=== PATIENT | male | born 1945 | race Caucasian/White ===

== ENCOUNTER 2021-01-06 14:57 | Emergency (ER) | payer OTHER, SELFPAY ==
[2021-01-06 15:18] VITALS: BP 134/87; PULSE 59; RESP 18; TEMP 36.7; O2SAT 98; BMI 24.4
--- NOTE | 2021-01-06 15:28 | ECG_ITS ---
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
--- NOTE | 2021-01-06 15:28 | XRR_ITS ---
PROCEDURE INFORMATION: Exam: XR Chest Exam date and time: 01/06/2021 3:28 PM Age: 75 years old Clinical indication: Pain; Chest pressure; Additional info: Chest pain TECHNIQUE: Imaging protocol: XR of the chest. Views: 1 view. COMPARISON: No relevant prior studies available. FINDINGS: Lungs: There is no consolidation. Pleural spaces: There is no pleural effusion or pneumothorax. Heart/Mediastinum: There is mild enlargement of the cardiac silhouette. There is a large hiatal hernia. Bones/joints: Bones are unremarkable. XR/XR chest 1V portable [id number] IMPRESSION: 1. No acute findings. 2. Large hiatal hernia.
--- NOTE | 2021-01-06 15:50 | CTR_ITS ---
PROCEDURE INFORMATION: Exam: CT Head Without Contrast Exam date and time: 01/06/2021 3:50 PM Age: 75 years old Clinical indication: Dizziness TECHNIQUE: Imaging protocol: Computed tomography of the head without contrast. Radiation optimization: All CT scans at this facility use at least one of these dose optimization techniques: automated exposure control; mA and/or kV adjustment per patient size (includes targeted exams where dose is matched to clinical indication); or iterative reconstruction. COMPARISON: No relevant prior studies available. RADIATION DOSE METRICS: Total DLP (mGy-cm): 943.88 FINDINGS: Brain: The brain is unremarkable. There is no mass effect or significant white matter disease. There is no acute intracranial hemorrhage. Cerebral ventricles: There is no significant ventricular dilation. The basal cisterns are unremarkable. Paranasal sinuses: The paranasal sinuses are clear. Mastoid air cells: The mastoid air cells are clear. Bones/joints: The calvarium is intact. Soft tissues: The visible extracranial soft tissues are unremarkable. CT/CT head wo con* [id number] IMPRESSION: No acute intracranial abnormality. Radiation Dose CTDIVOL = (mGy): DLP = 943.88 (mGy-cm)
--- NOTE | 2021-01-06 15:55 | ED_ITS ---
HPI - Neuro Symptoms/Deficit General: Chief Complaint: Neuro Symptoms/Deficit Stated Complaint: Dizziness Time Seen by Provider: 01/06/21 15:55 History of Present Illness: HPI Narrative: Mr. Perkins is a 75-year-old gentleman without significant past medical history presents to the emergency department due to abnormal syncopal episode. He reports negative baseline health. He walked a short distance which is not atypical for him to his friend's house and after about 15 minutes sitting on the couch had sudden onset of a warmth followed by lightheadedness and loss of consciousness. There was no fall or head strike associated with this. His friend, who is at bedside, witnessed this. He had altered level of consciousness for about 5 date minutes with left-sided head deviation but no other seizure-like activity. He subsequently returned to consciousness and felt off for about 10 minutes before symptoms completely resolved. 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 He denies similar episodes in the past. He has otherwise been at his baseline health. Intensity of symptoms was severe. Onset was sudden. No other specific provoking, exacerbating, or relieving factors identified. Review of Systems General: Reports: 10 or more systems reviewed and unremarkable except in HPI and below Physical Exam Narrative: EXAM NARRATIVE: GENERAL/CONSTITUTIONAL - well-appearing. No acute distress. Eyes - PERRL, no conjunctival injection ENMT - Atraumatic external nose and ears. Moist mucous membranes NECK - supple. trachea midline CARDIOVASCULAR - regular rate and rhythm. Peripheral pulses 2+ and equal RESPIRATORY -clear to auscultation bilaterally. No retractions or accessory muscle use. ABDOMEN/GI - Nontender/Nondistended. No tenderness to percussion or evidence of peritonitis MSK - Extremities without obvious deformity or tenderness to palpation SKIN - Warm, Dry NEURO - alert and appropriately oriented. Cranial nerves II through XII intact. Coordination intact. Gait normal. Strength and sensation intact. Moves all extremities equally. PSYCH - Appropriate mood and affect Course ED course: - Patient was seen and evaluated by me at bedside - Patient placed on cardiac monitors, IV access obtained - Initial evaluation notable for no acute distress, nontoxic appearance. No neurologic deficits appreciated - Labs notable for no acute abnormality to explain patient's symptoms - Imaging notable for no acute abnormality to explain patient's symptoms - Upon serial reexamination after treatment the patient was similar. 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 There is nothing in history or ED observation to suggest a tacky?lenin syndrome. No history of similar events. - Based on patient history, evaluation, labs, and imaging as interpreted the most likely cause of the patient's condition is unclear. I did discuss the uncertainty of the cause with the patient and offered admission for observation which she declined and felt comfortable with outpatient follow-up. - The results of ED evaluation were discussed with the patient including prescriptions and/or symptomatic cares (if applicable) including appropriate and responsible use, followup plan, and return precautions. The patient verbalized understanding and felt safe for discharge. - Patient discharged in satisfactory condition. Vital Signs: Vital signs: Vital Signs Temperature 98.3 F 01/06/21 16:02 Pulse Rate 50 L 01/06/21 20:17 Respiratory Rate 18 01/06/21 20:17 Blood Pressure 131/70 01/06/21 20:17 Pulse Oximetry 98 01/06/21 20:17 MDM - Neuro Symptoms/Deficit Medical Records: Attestation: I reviewed the patient's medical records. Lab Data: Attestation: I reviewed the patient's lab results. Labs: Lab Results 01/06/21 01/06/21 01/06/21 16:45 16:45 16:45 WBC 6.9 10^3/uL 10^3/ uL (4.0-10.0) RBC 4.78 10^6/uL 10^6 /uL (4.1-5.3) Hgb 16.9 g/dL H g/dL (11.7-16.6) Hct 48.1 % % (42.0-52.0) MCV 100.6 fl H fl (80-94) MCH 35.4 pg H pg (28.0-34.0) MCHC 35.1 g/dL g/dL (30.0-36.0) RDW 12.7 % % (12.1-15.1) Plt Count 143 10^3/cmm 10^3 /cmm (130-400) MPV 9.0 fL fL (7.4-10.4) Neut % (Auto) 73.2 % % Lymph % (Auto) 18.2 % % Giles % (Auto) 6.9 % % Eos % (Auto) 1.0 % % Baso % (Auto) 0.4 % % Neut # (Auto) 5.02 10^3/uL 10^3 /uL (1.8-7.7) Lymph # (Auto) 1.3 10^3/uL 10^3/ uL (0.8-4.8) Giles # (Auto) 0.5 10^3/uL 10^3/ uL (0.2-0.9) Eos # (Auto) 0.1 10^3/uL 10^3/ uL (0.0-0.8) Baso # (Auto) 0.0 10^3/uL 10^3/ uL (0.0-0.1) Nucleated RBC % (a uto) 0 % % Nucleated RBCs # 0.0 /100WBC /100W BC Sodium 139 mmol/L mmol/L (136-145) Potassium 4.3 mmol/L mmol/L (3.5-5.1) Chloride 103 mmol/L mmol/L (98-107) Carbon Dioxide 25 mmol/L mmol/L (22-29) Anion Gap 15.3 (5-19) BUN 18 mg/dL mg/dL (8-23) Creatinine 0.8 mg/dL mg/dL (0.7-1.2) GFR Calculation Not Reportable Glucose 101 mg/dL mg/dL (65-115) Calculated Osmolal ity 290 mOsm/kg mOsm/ kg (285-295) Calcium 9.1 mg/dL mg/dL (8.5-10.5) Troponin T Baselin e 8 ng/L ng/L (0-15) Troponin T 120 Min ridge Delta Troponin T NT-Pro-B Natriuret Pep 61 pg/mL pg/mL (0-125) TSH 2.26 uIU/mL uIU/m L (0.27-4.20) 01/06/21 19:05 WBC RBC Hgb Hct MCV MCH MCHC RDW Plt Count MPV Neut % (Auto) Lymph % (Auto) Giles % (Auto) Eos % (Auto) Baso % (Auto) Neut # (Auto) Lymph # (Auto) Giles # (Auto) Eos # (Auto) Baso # (Auto) Nucleated RBC % (a uto) Nucleated RBCs # Sodium Potassium Chloride Carbon Dioxide Anion Gap BUN Creatinine GFR Calculation Glucose Calculated Osmolal ity Calcium Troponin T Baselin e Troponin T 120 Min ridge 8.46 ng/L ng/L (0-15) Delta Troponin T 0.46 ABS# ABS# (0-10) NT-Pro-B Natriuret Pep TSH EKG Data^: EKG 1: Attestation: I personally reviewed and interpreted this EKG as follows: EKG interpretation date: 01/06/21 EKG interpretation time: 16:17 Interpretation: Twelve-lead EKG shows a regular rhythm at a rate of 55. IN interval 152, QRS duration 105, QTc 412. Normal axis. Interpretation: Sinus bradycardia EKG 2: Attestation: I personally reviewed and interpreted this EKG as follows: EKG interpretation date: 01/06/21 EKG interpretation time: 18:29 Interpretation: Twelve-lead EKG shows a regular rhythm at a rate of 48. IN interval 157, QRS duration 104, QTc 414. Normal axis. Interpretation: Sinus bradycardia. Discharge Plan Discharge Patient Disposition: Home Condition: Stable Prescriptions: No Action loratadine 10 mg Tablet 10 mg PO DAILY RF: 0 Discharge Orders: Discharge ED (Routine); Ordered 01/06/21 Ordered By: Morgan Prince Discharge Diet: Usual diet Discharge Activity: Resume usual activity Patient Instructions: Syncope (ED) Activity Restrictions/Additional Instructions: Thank you for visiting the emergency department. You were seen and evaluated for syncope. The exact cause of your symptoms is unclear as labs and imaging are unremarkable for cause. 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 As discussed this rarely needs intervention and can be watched. Dr Cormier in [place] is a neuro interventional radiologist who you could follow up with. Please follow-up with your primary care provider and outpatient for additional cardiac testing. Please return to the emergency department for anything that you are concerned about and feel needs emergency department evaluation. 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
[2021-01-06 16:02] VITALS: BP 147/96; PULSE 56; RESP 14; TEMP 36.8; O2SAT 97
--- NOTE | 2021-01-06 16:25 | CTR_ITS ---
PROCEDURE INFORMATION: Exam: CT Angiography Head With Contrast, Arteriography Exam date and time: 01/06/2021 4:25 PM Age: 75 years old Clinical indication: Dizziness and giddiness; Additional info: Syncope TECHNIQUE: Imaging protocol: Computed tomography angiography of the head with contrast. Exam focused on the arteries. 3D rendering (Not supervised by radiologist): MIP and/or 3D reconstructed images were created by the technologist. Radiation optimization: All CT scans at this facility use at least one of these dose optimization techniques: automated exposure control; mA and/or kV adjustment per patient size (includes targeted exams where dose is matched to clinical indication); or iterative reconstruction. Contrast material: OMNIPAQUE 350; Contrast volume: 95 ml; Contrast route: INTRAVENOUS (IV); COMPARISON: CT head wo con* [id number] 01/06/2021 5:55 PM RADIATION DOSE METRICS: Total DLP (mGy-cm): 1974.91 FINDINGS: ANTERIOR CIRCULATION: Right internal carotid artery: There is mild atherosclerotic disease in the cavernous portion of the right internal carotid artery without significant stenosis. Right middle cerebral artery: Unremarkable. No occlusion or significant stenosis. No aneurysm. Right anterior cerebral artery: Unremarkable. No occlusion or significant stenosis. No aneurysm. Left internal carotid artery: There is a fusiform aneurysm of the left cavernous internal carotid artery measuring up to 6 mm diameter. See axial series 4 image 187. There is mild atherosclerotic disease in the cavernous portion of the left internal carotid artery without significant stenosis. Left middle cerebral artery: Unremarkable. No occlusion or significant stenosis. No aneurysm. Left anterior cerebral artery: Unremarkable. No occlusion or significant stenosis. No aneurysm. POSTERIOR CIRCULATION: Right vertebral artery: Unremarkable. No occlusion or significant stenosis. No aneurysm. Left vertebral artery: Unremarkable. No occlusion or significant stenosis. No aneurysm. Basilar artery: Unremarkable. No occlusion or significant stenosis. No aneurysm. Right posterior cerebral artery: Unremarkable. No occlusion or significant stenosis. No aneurysm. Left posterior cerebral artery: origin of the left posterior cerebral artery. No occlusion or aneurysm. Veins: Dural venous sinuses are patent. Brain: No definite mass, mass effect, or midline shift. Cerebral ventricles: No ventriculomegaly. Bones/joints: Unremarkable. No acute fracture. Soft tissues: Unremarkable. IMPRESSION: 1. No arterial stenosis or occlusion. 2. 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 PROCEDURE INFORMATION: Exam: CT Angiography Neck With Contrast Exam date and time: 01/06/2021 4:25 PM Age: 75 years old Clinical indication: Dizziness and giddiness; Additional info: Syncope TECHNIQUE: Imaging protocol: Computed tomography angiography of the neck with contrast. 3D rendering (Not supervised by radiologist): MIP and/or 3D reconstructed images were created by the technologist. Radiation optimization: All CT scans at this facility use at least one of these dose optimization techniques: automated exposure control; mA and/or kV adjustment per patient size (includes targeted exams where dose is matched to clinical indication); or iterative reconstruction. Contrast material: OMNIPAQUE 350; Contrast volume: 95 ml; Contrast route: INTRAVENOUS (IV); COMPARISON: CT head wo con* [id number] 01/06/2021 5:55 PM RADIATION DOSE METRICS: Total DLP (mGy-cm): FINDINGS: Right common carotid artery: No stenosis. No dissection or occlusion. Right internal carotid artery: No stenosis of the extracranial segment. No dissection or occlusion. Right external carotid artery: No occlusion or stenosis of the origin. Left common carotid artery: No stenosis. No dissection or occlusion. Left internal carotid artery: There is mild atherosclerotic disease at the origin of the left internal carotid artery with less than 50% stenosis. Left external carotid artery: No occlusion or stenosis of the origin. Right vertebral artery: No stenosis. No dissection or occlusion. Left vertebral artery: No stenosis. No dissection or occlusion. Soft tissues: Soft tissues in the neck and thoracic inlet are unremarkable. 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 Lungs: Lung apices are clear. CT/CT angio headneck* [id number] IMPRESSION: No arterial stenosis, occlusion or dissection. REFERENCES: NASCET CRITERIA. The degree of internal carotid artery stenosis is based on NASCET criteria. Normal is no stenosis. Mild is less than 50% stenosis. Moderate is 50-69% stenosis. Severe is 70% to 99% stenosis. Total occlusion is no detectable patent lumen. Radiation Dose CTDIVOL = (mGy): DLP = 1974.~1974. (mGy-cm)
[2021-01-06 16:57] VITALS: BP 123/75; PULSE 48; RESP 19; O2SAT 97
[2021-01-06 17:05] LABS: Basophils % 0.4 %; Eosinophils # 0.1 10^3/uL (0.0-0.8); Hematocrit 48.1 % (42.0-52.0); Hemoglobin 16.9 g/dL (11.7-16.6); Lymphocytes # 1.3 10^3/uL (0.8-4.8); Lymphocytes % 18.2 %; Mean Corpuscular HGB Conc 35.1 g/dL (30.0-36.0); Mean Corpuscular Hemoglobin 35.4 pg (28.0-34.0); Mean Corpuscular Volume 100.6 fl (80-94); Monocytes # 0.5 10^3/uL (0.2-0.9); Monocytes % 6.9 %; Neutrophils # 5.02 10^3/uL (1.8-7.7); Neutrophils % 73.2 %; Nucleated Red Blood Cells % 0 %; Platelet Count 143 10^3/cmm (130-400); Red Blood Count 4.78 10^6/uL (4.1-5.3); Red Cell Distribution Width 12.7 % (12.1-15.1); White Blood Count 6.9 10^3/uL (4.0-10.0)
[2021-01-06] MEDS: sodium chloride 0.9% 1,000 ML 999 ML IV (17:18)
--- NOTE | 2021-01-06 17:28 | ECG_ITS ---
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
[2021-01-06 17:39] LABS: Troponin(5th) Baseline 8 ng/L (0-15)
[2021-01-06 17:52] LABS: Anion Gap 15.3 (5-19); Blood Urea Nitrogen 18 mg/dL (8-23); Calcium 9.1 mg/dL (8.5-10.5); Carbon Dioxide 25 mmol/L (22-29); Chloride 103 mmol/L (98-107); Glucose 101 mg/dL (65-115); NT Pro B Type Natriuretic Pept 61 pg/mL (0-125); Osmolality Calculated 290 mOsm/kg (285-295); Potassium 4.3 mmol/L (3.5-5.1); Sodium 139 mmol/L (136-145); Thyroid Stimulating Hormone 2.26 uIU/mL (0.27-4.20)
[2021-01-06] MEDS: iohexol 350 mg/mL 100 mL Btl IV (18:04)
[2021-01-06 18:57] VITALS: BP 131/78; PULSE 55; RESP 15; O2SAT 96
[2021-01-06 19:41] LABS: Troponin 5 2HR 8.46 ng/L (0-15); Troponin 5 2HR Delta 0.46 ABS# (0-10)
[2021-01-06 20:00] VITALS: BP 131/70; PULSE 50; RESP 18; O2SAT 98
[2021-01-06 20:17] VITALS: BP 131/70; PULSE 50; RESP 18; O2SAT 98
--- NOTE | 2021-01-07 12:38 | DCPLANNER ---
Addendum entered by Tamara Barrera 04/26/21 10:36: Patient had a follow up appointment scheduled with primary care - patient did attend appointment. Original Note: it infrastructure project manager had message to speak with patient about primary care, and to schedule an outpatient echocardiogram, and holter monitor. it infrastructure project manager spoke with patient, he stated that he has a primary care physician, but he does not have an appointment scheduled until May, being a new patient. it infrastructure project manager called [facility], spoke with Cintia. Patients appointment was rescheduled for , January 17, 2021 at 1:[address] Meneses. it infrastructure project manager called patient and gave him the appointment information. Patient stated that he wanted to wait and see his primary care physician before scheduling an echo cardiogram and halter monitor.
== END 2021-01-06 20:18 | disposition home or self-care (01) ==
PROVIDERS: Emergency Medicine; Emergency Provider Emergency Medicine
DX: R42 Dizziness and giddiness (principal); R55 Syncope and collapse
CPT/HCPCS: 70450; 70496; 70498; 71045; 80048; 83880; 84443; 84484; 85025; 93005; 96360; 99284; J7030; Q9967

== ENCOUNTER → 2022-02-20 08:58 | Outpatient (BNVA) | payer OTHER, SELFPAY | PROVIDERS: PCP Family Medicine; Visit Provider Family Medicine | DX: Z00.00 Encounter for general adult medical examination without abnormal findings (principal); E83.119 Hemochromatosis, unspecified | CPT/HCPCS: 80061; 82728; 85025 ==

== ENCOUNTER → 2023-03-09 14:53 | Outpatient (BNVA) | payer OTHER, SELFPAY | PROVIDERS: PCP Family Medicine; Visit Provider Family Medicine | DX: E83.119 Hemochromatosis, unspecified (principal); Z00.00 Encounter for general adult medical examination without abnormal findings | CPT/HCPCS: 80053; 80061; 82728; 84153; 85025 ==

== ENCOUNTER → 2024-04-12 10:01 | Outpatient (BNVA) | payer OTHER, SELFPAY | PROVIDERS: PCP Family Medicine; Visit Provider Family Medicine | DX: E83.119 Hemochromatosis, unspecified (principal); Z00.00 Encounter for general adult medical examination without abnormal findings | CPT/HCPCS: 80053; 80061; 82728; 84153; 85025 ==